=== PATIENT | female | born 1960 | race Caucasian/White ===

== ENCOUNTER 2025-05-18 17:04 | Emergency (ER) | payer MEDICAID ==
[~2025-05-18] VITALS: Ht 162.6 cm; Wt 86.0 kg
[2025-05-18 17:10] VITALS: BP 136/86; PULSE 87; RESP 18; TEMP 37.2; O2SAT 97
[2025-05-18] MEDS: CLONAZEPAM 1MG TABLET PO ONE (19:01)
[2025-05-18] MEDS: KETOROLAC 30MG/ML VIAL IM ONE (19:01)
[2025-05-18] MEDS: DIVALPROEX SODIUM 500MG DR TABLET PO ONE (19:01)
== END 2025-05-18 20:45 | disposition home or self-care (01) ==
LOC: ER 17:04
DX: R51.9 Headache, unspecified (principal); R56.9 Unspecified convulsions; F41.9 Anxiety disorder, unspecified; I10 Essential (primary) hypertension; I25.2 Old myocardial infarction; M41.9 Scoliosis, unspecified; Z88.1 Allergy status to other antibiotic agents
CPT/HCPCS: 99285; 70450; 96372; J1885